=== PATIENT | female | born 1950 | race Two or more races ===

== ENCOUNTER 2023-07-05 10:45 | Inpatient (IN) | payer OTHER ==
[~2023-07-05] VITALS: Ht 152.4 cm; Wt 57.6 kg
[2023-07-05] MEDS ORDERED: COZAAR100 MG PO (14:46)
[2023-07-05] MEDS ORDERED: ANASTROZOLE1 MG PO (14:47)
[2023-07-05] MEDS ORDERED: PANTOPRAZOLE SO20 MG PO (14:47)
[2023-07-05] MEDS ORDERED: LIPITOR20 MG PO (14:47)
[2023-07-05] MEDS ORDERED: NORVASC5 MG PO (14:47)
[2023-07-05] MEDS ORDERED: HYDROCHLOROTH12.5 MG PO (14:48)
[2023-07-05] MEDS ORDERED: ZYRTEC10 M3 PO (14:48)
[2023-07-10 16:16] LABS: HEMATOCRIT 33.6 % (36.0-45.00); HEMOGLOBIN 11.5 g/dL (12.0-15.00); MEAN CELL VOLUME 87.2 fL (80.00-100.00); MEAN CORPUSCULAR HGB CONC 34.4 g/dl (32.0-36.0); PLATELET COUNT 243 K/uL (150-450); RED BLOOD COUNT 3.85 M/uL (4.00-6.00); RED CELL DISTRIBUTION WIDTH 13.8 % (11.5-14.5)
[2023-07-10 16:36] LABS: ALBUMIN 3.2 gm/dL (3.4-5.0); CALCIUM 8.7 mg/dL (8.5-10.1); CREATININE SERUM 0.58 mg/dL (0.55-1.02); GFR 101.9; MAGNESIUM 1.8 mg/dL (1.8-2.4); PHOSPHOROUS 3.1 mg/dL (2.5-4.9); POTASSIUM 3.5 mEq/L (3.5-5.1)
[2023-07-11 06:27] LABS: HEMATOCRIT 32.4 % (36.0-45.00); HEMOGLOBIN 11.1 g/dL (12.0-15.00); MEAN CELL VOLUME 88.3 fL (80.00-100.00); MEAN CORPUSCULAR HEMOGLOBIN 30.2 pg (27.00-32.0); MEAN CORPUSCULAR HGB CONC 34.1 g/dl (32.0-36.0); PLATELET COUNT 237 K/uL (150-450); RED BLOOD COUNT 3.67 M/uL (4.00-6.00); RED CELL DISTRIBUTION WIDTH 13.5 % (11.5-14.5)
[2023-07-11 06:37] LABS: CALCIUM 8.5 mg/dL (8.5-10.1); CREATININE SERUM 0.58 mg/dL (0.55-1.02); GFR 101.9; MAGNESIUM 1.8 mg/dL (1.8-2.4); PHOSPHOROUS 4.1 mg/dL (2.5-4.9); POTASSIUM 3.88 mEq/L (3.5-5.1)
[2023-07-11] MEDS ORDERED: FAMOTIDINE40 MG (09:55)
[2023-07-11] MEDS ORDERED: GENTLE LAXATIVE5 M1 (09:56)
[2023-07-12 07:01] LABS: HEMATOCRIT 25.1 % (36.0-45.00); MEAN CELL VOLUME 87.3 fL (80.00-100.00); MEAN CORPUSCULAR HGB CONC 35.5 g/dl (32.0-36.0); PLATELET COUNT 189 K/uL (150-450); RED BLOOD COUNT 2.87 M/uL (4.00-6.00)
[2023-07-12 07:03] LABS: HEMOGLOBIN 8.9 g/dL (12.0-15.00)
[2023-07-12 07:04] LABS: CALCIUM 7.9 mg/dL (8.5-10.1); CREATININE SERUM 0.41 mg/dL (0.55-1.02); GFR 152.06; MAGNESIUM 1.4 mg/dL (1.8-2.4); PHOSPHOROUS 2.5 mg/dL (2.5-4.9); POTASSIUM 3.4 mEq/L (3.5-5.1)
[2023-07-12 14:48] LABS: HEMATOCRIT 35.4 % (36.0-45.00); HEMOGLOBIN 11.7 g/dL (12.0-15.00); MEAN CELL VOLUME 88.9 fL (80.00-100.00); MEAN CORPUSCULAR HEMOGLOBIN 29.4 pg (27.00-32.0); MEAN CORPUSCULAR HGB CONC 33.1 g/dl (32.0-36.0); PLATELET COUNT 252 K/uL (150-450); RED BLOOD COUNT 3.98 M/uL (4.00-6.00); RED CELL DISTRIBUTION WIDTH 13.6 % (11.5-14.5)
[2023-07-13] MEDS ORDERED: HYOSCYAMINE0.125 M1 SL (12:11)
[2023-07-13] MEDS ORDERED: INTESTINEX680 M1 PO (12:11)
== END 2023-07-13 13:59 | disposition home or self-care (01) | DRG 331 ==
LOC: O/R 07-10 08:00 → SURH 07-10 11:15 → SURG 07-10 16:14 → SURH 07-10 20:00 → SURG 07-13 13:59
PROVIDERS: Internal Medicine Geriatric Medicine; ADMIT Surgery; ATTEND Surgery
PROC: 0DBP4ZZ Excision of Rectum, Percutaneous Endoscopic Approach (ICD-10-PCS; 2023-07-10)
PROC: 0DTN4ZZ Resection of Sigmoid Colon, Percutaneous Endoscopic Approach (ICD-10-PCS; principal; 2023-07-10 20:00)
DX: K57.32 Diverticulitis of large intestine without perforation or abscess without bleeding (principal); R10.32 Left lower quadrant pain; K59.09 Other constipation